=== PATIENT | female | born 1980 | race Caucasian/White ===

== ENCOUNTER 2021-06-27 13:06 | Observation (INO) | payer BC ==
[~2021-06-27] VITALS: Ht 152.4 cm; Wt 45.5 kg
[2021-06-27] MEDS ORDERED: CIPR500S PO (13:32)
[2021-06-27] MEDS ORDERED: ZOFR4TAB16 PO (13:32)
[2021-06-27] MEDS ORDERED: ACET-683 PO (13:34)
[2021-06-27] MEDS ORDERED: IBUP-1114 PO (13:34)
[2021-06-27 14:20] LABS: GLUCOSE, URINE (UA) MANUAL NEGATIVE (NEGATIVE); KETONE, URINE MANUAL NEGATIVE (NEGATIVE)
[2021-06-27 14:21] LABS: BILIRUBIN, URINE MANUAL NEGATIVE (NEGATIVE); UROBILINOGEN, URINE MANUAL NORMAL (NORMAL)
[2021-06-27 14:29] LABS: RBC, URINE TNTC /hpf (0-3); SQUAMOUS EPITHELIAL CELL URINE SMALL AMOUNT /hpf (SMALL AMT)
[2021-06-27 14:30] LABS: BACTERIA, URINE SMALL AMOUNT; HYALINE CAST, URINE NONE SEEN /lpf (0-1); MUCUS, URINE SMALL AMOUNT (NEGATIVE)
[2021-06-27 15:25] LABS: BASO # 0.1 10^3/uL (0.0-0.2); BASO % 0.9 % (0.0-1.0); EOS # 0.7 10^3/uL (0.0-0.5); EOS % 6.4 % (0.0-3.0); HEMATOCRIT 37.3 % (36.0-47.0); HEMOGLOBIN 12.2 g/dl (12.0-15.5); LYMPH % 17.2 % (24.0-44.0); MEAN CORPUSCULAR HGB CONC 32.7 g/dl (32.0-36.5); MEAN CORPUSCULAR VOLUME 97.9 fl (80.0-96.0); MONO # 0.6 10^3/uL (0.0-0.8); MONO % 4.8 % (2.0-8.0); NEUTROPHILS # 8.1 10^3/uL (1.5-8.5); NEUTROPHILS % 70.4 % (36.0-66.0); PLATELET COUNT, AUTOMATED 360 10^3/uL (150-450); RED BLOOD COUNT 3.81 10^6/uL (4.00-5.40); WHITE BLOOD COUNT 11.5 10^3/uL (4.0-10.0)
[2021-06-27 15:49] LABS: ALBUMIN 3.8 GM/DL (3.2-5.2); BILIRUBIN,DIRECT 0.1 MG/DL (0.0-0.2); BILIRUBIN,TOTAL 0.5 MG/DL (0.2-1.0); TOTAL PROTEIN 7.4 GM/DL (6.4-8.2)
[2021-06-27] MEDS ORDERED: MORPHINE 4 MG/ML 1ML VIAL/SYRINGE (J2270) IV ONE (16:35)
[2021-06-27] MEDS ORDERED: NS 1,000 ML IV ONE (16:35)
[2021-06-27] MEDS ORDERED: ONDANSETRON 4MG/2ML VIAL IV ONE (16:35)
--- NOTE | 2021-06-27 17:52 | REP ---
INDICATION: right flank pain/hematuria COMPARISON: None TECHNIQUE: Real time zamudio scale ultrasound examination using curved array transducer. FINDINGS: Right kidney measures 10.5 x 5.3 x 3.3 cm with mild hydronephrosis/proximal hydroureter. No nephrolithiasis, cystic or mass lesion identified. Left kidney measures 10.4 x 4.1 x 3.8 cm and includes 1.5 cm upper pole cyst. No hydronephrosis, nephrolithiasis, or mass lesion identified. Bladder is grossly unremarkable. IMPRESSION: Mild right hydronephrosis/proximal hydroureter. Incidental simple left renal cyst. <Electronically signed by Earnest Baker > 06/27/21 [id number]
[2021-06-27] MEDS ORDERED: PERCOCET 5MG/325MG TAB PO PRN (18:55)
[2021-06-27] MEDS ORDERED: ACETAMINOPHEN TAB 650MG DOSE (2X325MG) PO PRN (18:55)
[2021-06-27] MEDS ORDERED: ONDANSETRON 4MG/2ML VIAL IV PRN (18:55)
[2021-06-27] MEDS ORDERED: CIPR500T39 PO (18:59)
[2021-06-27] MEDS ORDERED: HOME MED LIST COMPLETE! XX SCH (19:00)
[2021-06-27] MEDS ORDERED: THERTAB52 PO (19:00)
[2021-06-27 20:01] LABS: RSV AMPLIFICATION NEGATIVE (NEGATIVE)
--- NOTE | 2021-06-27 20:09 | HPEPDOC ---
General Date of Admission 06/27/21 Date of Service: Jun 27, 2021 Chief Complaint The patient is a 40-year-old female admitted with a reason for visit of Blood In Urine. Source: Patient History of Present Illness Dolores Garrison is a 40 yo F with significant medical history of total hysterectomy. Pt presents with R flank pain and passing bloody clots in urine. Pt reports her symptoms began last Tuesday and [facility] and they treated her for UTI with Macrobid and she was off work for 1 day. Patient reports at work Tuesday she started developing blood clots in her urine and the work [employer] told her to go home and to the ER. Patient reports that she went to the hospital ER in [place] and had a CT scan completed. The CT showed hydronephrosis-no stone and she was placed on macrobid and went to urology clinic for follow-up on Tuesday. Patient had antibiotics changed to Cipro and the plan was for cystoscopy on Tuesday. Unfortunately, the provider had an emergency on Tuesday and the cystoscopy was changed to be planned on Tuesday. The patient was told if her symptoms worsened however to present to the ED. As the patient reported her pain was unable to be controlled at home with the medication she was given and she "losing a lot of blood" she came today. Patient endorses associated symptoms of right flank sharp pain 9 out of 10 with difficulty laying down. Also associated nausea, lightheadedness and chills. Renal US completed and showed similarly, no stone, but + mild R hydronephrosis. Urology was contact by ED and Dr. Singh recommended observation, hydration and abx and pt would be seen in AM. 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 She also endorses recent increased stress - she is a mother of 5 children and is going through divorce. Home Medications Scheduled Ciprofloxacin HCl (Ciprofloxacin HCl) 500 Mg Tablet, 500 MG PO ONCE, (Reported) Multivitamin,Therapeutic (Thera-Tabs) 1 Each Tablet, 1 TAB PO DAILY, (Reported) Scheduled PRN Acetaminophen (Acetaminophen) 500 Mg Tablet, 1,000 MG PO Q6H PRN for PAIN , (Reported) Ibuprofen (Ibuprofen) 400 Mg Tablet, 400 MG PO Q6HP PRN for PAIN, (Reported) Allergies Coded Allergies: Sulfa (Sulfonamide Antibiotics) (Verified Allergy, Mild, vomitting/rash, 06/27/21) metronidazole (Verified Allergy, Mild, vomitting/rash, 06/27/21) Past Medical History Medical History Some day smoker Surgical History Total hysterectomy due to multiple cysts greater than 3 years ago. Family History Significant Family History: Cancer, Renal disease Son/ from leukodystrophy, daughterborn with extra kidney, motherrequired kidney transplant Social History * Smoker: current smoker, cigarettes (Current some day smoker, 1-2) Recent Travel/Sick Contacts: Denies: Recent travel, Recent sick contacts Psychosocial History: No pertinent psych hx Patient is a single mother of 5, going through divorce. A-FIB/CHADSVASC A-FIB History Current/History of A-Fib/PAF?: No Current PO Anticoag Therapy: No Review of Systems Constitutional: Reports: Chills; Denies: Fever, Night Sweats Eyes: Denies: Pain, Vision change ENT: Denies: Head Aches, Ear Pain, Dysphagia Skin: Denies: Rash, Lesions, Breakdown Pulmonary: Denies: Dyspnea, Cough Cardiovascular: Reports: Lt Headedness; Denies: Chest Pain, Palpitations, Orthopnea, Paroxysmal Noc. Dyspnea Gastrointestinal: Reports: Nausea; Denies: Vomiting, Abdominal Pain, Diarrhea Genitourinary: Reports: Hematuria, Other Symptoms (flank pain R); Denies: Dysuria, Frequency, Incontinence, Retention Hematologic: Denies: Bruising, Bleeding Excessively Musculoskeletal: Denies: Neck Pain, Back Pain, Joint Pain, Muscle Pain, Spasms Neurological: Denies: Weakness, Numbness, Change in speech, Confusion Psych: Reports: Mood Normal; Denies: Depression, Memory Issues Physical Examination General Exam: Positive: Alert, No Acute Distress Eye Exam: Positive: PERRLA, Conjunctiva & lids normal, EOMI; Negative: Sclera icteric ENT Exam: Positive: Atraumatic, Mucous membr. moist/pink, Pharynx Normal Neck Exam: Positive: Supple; Negative: JVD, thyromegaly Chest Exam: Positive: Clear to auscultation, Normal air movement Heart Exam: Positive: Rate Normal, Regular Rhythm, Normal S1, Normal S2; Negative: Murmurs, Rubs Telemetry: Positive: No significant arrhythmia Abdomen Exam: Positive: Normal bowel sounds, Soft; Negative: Tenderness, Hepatospenomegaly Extremity Exam: Positive: Normal pulses; Negative: Clubbing, Cyanosis, Edema Skin Exam: Positive: Nl turgor and temperature; Negative: Breakdown, Lesion Neuro Exam: Positive: Normal Gait, Normal Speech, Cranial Nerves 3-12 NL, Reflexes 2+ Psych Exam: Positive: Mental status NL, Mood NL, Oriented x 3 Other physical findings R CVA tenderness Vital Signs Vital Signs Date Time Temp Pulse Resp B/P (MAP) Pulse Ox O2 Delivery O2 Flow Rate FiO2 06/27/21 17:45 60 16 105/55 (72) 100 06/27/21 13:08 98.1 Room Air Laboratory Data Labs 24H Laboratory Tests 2 06/27/21 14:09: Urine Color (EDY) REDH, Urine Appearance (EDY) CLEAR, Urine pH (EDY) 6.0, Urine Specific [place] (EDY) 1.010, Bedside Urine Glucose (UA) NEGATIVE, Bedside Urine Ketones (LAB) NEGATIVE, Bedside Urine Blood POSITIVEH, Bedside Urine Nitrite (LAB) NEGATIVE, Bedside Urine Bilirubin (LAB) NEGATIVE, Bedside Urine Urobilinogen (LAB) NORMAL, Bedside Urine Leukocyte Esterase (L POSITIVEH, Urine Sediment Examination PERFORMED, Urine RBC TNTCH, Urine WBC 3-5H, Urine Squamous Epithelial Cells SMALL AMOUNT, Urine Bacteria SMALL AMOUNTH, Urine Hyaline Casts NONE SEEN, Urine Mucus SMALL AMOUNTH 06/27/21 15:13: Immature Granulocyte % (Auto) 0.3, Neutrophils (%) (Auto) 70.4H, Lymphocytes (%) (Auto) 17.2L, Monocytes (%) (Auto) 4.8, Eosinophils (%) (Auto) 6.4H, Basophils (%) (Auto) 0.9, Neutrophils # (Auto) 8.1, Lymphocytes # (Auto) 2.0, Monocytes # (Auto) 0.6, Eosinophils # (Auto) 0.7H, Basophils # (Auto) 0.1, Nucleated Red Blood Cells % (auto) 0.0, Total Bilirubin 0.5, Direct Bilirubin 0.1, Aspartate Amino Transf (AST/SGOT) 18, Alanine Aminotransferase (ALT/SGPT) 24, Alkaline Phosphatase 72, Total Protein 7.4, Albumin 3.8, Albumin/Globulin Ratio 1.1L, Lipase 138 06/27/21 15:21: POC Glucose (Misc Panel) 89, POC Sodium (Misc Panel) 143, POC Potassium (Misc Panel) 4.1, POC Chloride (Misc Panel) 102, POC Total CO2 (Misc Panel) 28.0H, POC Blood Urea Nitrogen (Misc Panel 5L, POC Ionized Calcium (Misc Panel) 5.0, POC Creatinine (Misc Panel) 0.6, POC Hematocrit (Misc Panel) 36.0L CBC/BMP Laboratory Tests 06/27/21 15:13 Microbiology Microbiology 06/27/21 Urine Culture, Received Pending Assessment/Plan 1. R Hydronephrosis with hematuria 2/2 presumed Pyelonephritis: Pt with reported clots. OMAR without Nephrolithiasis. Anticipate UA sterile given recent OP antibiotics. -Monitor pt, Hydration -UOP, Is and Os -Empiric coverage -Monitor for signs symptoms worsening infection -Symptom management/supportive care: Antiemetics, Percocet/morphine with parameters -Monitor for blood loss, hemoglobin robust at 12.2. Patient reports that she is agreeable to blood transfusion if needed -A.m. lab -N.p.o. after midnight in anticipation of procedure -Urology consult in a.m., appreciate recommendations 2. Tobacco use: Encourage cessation, patient declined nicotine patch DVT: SCDs CODE Status: Full Code Dispo: Home pend urology recommendations Plan / VTE VTE Prophylaxis Ordered?: Yes MARIANNA HUDDLESTON NP Jun 27, 2021 19:27
[2021-06-27] MEDS: cefTRIAXone SOD 1 GM in D5W MINI-BAG PLUS 50 ML IV SCH (20:35)
[2021-06-27] MEDS: NS 1,000 ML IV SCH (20:35)
[2021-06-27 21:33] VITALS: BP 107/64
[2021-06-28] VITALS (9 sets, daily range): BP systolic 88–104; BP diastolic 48–60
[2021-06-28] MEDS: MORPHINE 2 MG/ML 1ML VIAL (J2270) IV PRN ×2 (01:30→06:05)
[2021-06-28] MEDS: NS 1,000 ML IV SCH ×3 (06:04→21:07)
[2021-06-28 07:59] LABS: BASO # 0.1 10^3/uL (0.0-0.2); BASO % 1.1 % (0.0-1.0); EOS # 0.7 10^3/uL (0.0-0.5); EOS % 10.8 % (0.0-3.0); HEMATOCRIT 33.8 % (36.0-47.0); HEMOGLOBIN 11.1 g/dl (12.0-15.5); LYMPH # 2.3 10^3/uL (1.5-5.0); LYMPH % 36.2 % (24.0-44.0); MEAN CORPUSCULAR HEMOGLOBIN 32.3 pg (27.0-33.0); MEAN CORPUSCULAR HGB CONC 32.8 g/dl (32.0-36.5); MEAN CORPUSCULAR VOLUME 98.3 fl (80.0-96.0); MONO # 0.4 10^3/uL (0.0-0.8); NEUTROPHILS # 2.8 10^3/uL (1.5-8.5); NEUTROPHILS % 44.6 % (36.0-66.0); PLATELET COUNT, AUTOMATED 278 10^3/uL (150-450); RED BLOOD COUNT 3.44 10^6/uL (4.00-5.40); WHITE BLOOD COUNT 6.3 10^3/uL (4.0-10.0)
[2021-06-28 08:27] LABS: ALBUMIN 2.9 GM/DL (3.2-5.2); ALT/SGPT 19 U/L (12-78); BILIRUBIN,TOTAL 0.7 MG/DL (0.2-1.0); BLOOD UREA NITROGEN 6 MG/DL (7-18); CALCIUM LEVEL 8.5 MG/DL (8.5-10.1); CARBON DIOXIDE LEVEL 29 MEQ/L (21-32); CHLORIDE LEVEL 111 MEQ/L (98-107); CREATININE FOR GFR 0.48 MG/DL (0.55-1.30); GLOMERULAR FILTRATION RATE > 60.0 (>58); GLUCOSE, FASTING 77 MG/DL (70-100); POTASSIUM SERUM 4.6 MEQ/L (3.5-5.1); SODIUM LEVEL 143 MEQ/L (136-145); TOTAL PROTEIN 6.2 GM/DL (6.4-8.2)
[2021-06-28] MEDS ORDERED: propofoL 200 MG/20 ML VIAL As Ordered ONE ×2 (09:15→10:58)
[2021-06-28] MEDS ORDERED: ONDANSETRON 4MG/2ML VIAL As Ordered ONE (09:15)
[2021-06-28] MEDS ORDERED: dexameTHASONE 4 MG/ML 1ML VIAL (J1100 PER 1MG) As Ordered ONE (09:15)
[2021-06-28] MEDS ORDERED: LIDOCAINE 2% 100MG/5ML SDV (FOR ANES.) As Ordered ONE (09:15)
[2021-06-28] MEDS ORDERED: fentaNYL 100 MCG/2 ML INJECTION (J3010) As Ordered ONE (09:16)
[2021-06-28] MEDS ORDERED: MIDAZOLAM INJ 2MG/2ML VIAL (J2250 PER 1MG) As Ordered ONE (09:16)
[2021-06-28] MEDS ORDERED: CONRAY-60 60% 50ML VIAL (Q9961) As Ordered ONE (10:02)
[2021-06-28] MEDS ORDERED: ACETAMINOPHEN 1000MG 100ML IV BTL (OFIRMEV) (J0131 PER 10MG) As Ordered ONE (10:44)
[2021-06-28] MEDS ORDERED: fentaNYL 100 MCG/2 ML INJECTION (J3010) IV PRN (11:30)
[2021-06-28] MEDS ORDERED: LR 1,000 ML IV SCH (11:30)
[2021-06-28] MEDS ORDERED: oxyCODONE 5MG TAB PO PRN (11:30)
[2021-06-28] MEDS ORDERED: ONDANSETRON 4MG/2ML VIAL IV PRN (11:30)
[2021-06-28] MEDS ORDERED: NS 1,000 ML IV ONE ×2 (12:45→19:35)
--- NOTE | 2021-06-28 13:57 | RO ---
OPERATIVE NOTE DATE OF OPERATION: 06/28/2021 PREOPERATIVE DIAGNOSES: 1. Right hydronephrosis. 2. Hematuria. POSTOPERATIVE DIAGNOSES: 1. Right hydronephrosis. 2. Hematuria. 3. Right UPJ obstruction. PROCEDURE: 1. Cystoscopy. 2. Right retrograde pyelogram. 3. Right ureteroscopy. 4. Placement of right ureteral stent. SURGEON: Eulogio Singh M.D. FLAVORINGS COMPOUNDER: ANESTHESIA: MAC anesthesia with IV sedation. ESTIMATED BLOOD LOSS: Minimal. INDICATION: Miss Dolores Garrison is a 40-year-old woman who recently had approximately 1-2 weeks of right flank pain with recent onset of gross hematuria. She has had two CT scans which reveal right hydronephrosis without stones or mass. She continues with right flank pain and evidence of urinary tract infection. She now presents for a potential diagnosis of this prognosis. PROCEDURE IN DETAIL: The patient was brought into the operating room, placed in supine position. After administration of general anesthesia, she was placed in dorsal lithotomy position and prepped and draped in the usual sterile fashion. Cystourethroscopy was performed using a 21-American cystoscope. The anterior and posterior urethra were noted to be normal. The bladder was entered without difficulty. Upon entrance into the bladder, there was mild erythema noted throughout the mucosa but no obvious gross lesion was appreciated. There was no evidence of cystitis cystica or acute cystitis. The ureteral orifices were in their normal anatomical position and produced a large exert efflux. Using a 5 American open-ended catheter, a right retrograde pyelogram was performed. This revealed a normal middle and distal ureter. There was what appeared to be the ureteropelvic junction on the right side but significant narrowing of the proximal ureter and ballooning of the renal pelvis. The renal calices, however, appeared dilated but preserved. There were no obvious filling defects or stones seen. Under fluoroscopic guidance, a wire was placed across the right distal ureter and up into the right renal pelvis. Placement into the renal pelvis was initially difficult given the helical nature of the proximal ureter. A ureteral access sheath was placed and flexible ureteroscopy was performed. All of the visualized ureter was noted to be normal. There were no skin lesions, masses, tumors or calculi seen. There was significant narrowing in the region of the ureteropelvic requiring the scope to be placed over the wire. There was no evidence of mass or other irregularity in this area. Upon entrance into the renal pelvis, there were some floaties noted but again no obvious infection or lesions. The wire was left in situ and the flexible ureteroscope and ureteral access sheath were removed. A 6 American double pigtail stent was then placed such that one coil was in the renal pelvis and the subsequent coil was in the bladder. The string was allowed to exit the urethral meatus. The bladder was then drained in its entirety, and the cystoscope and the sheath were removed. The patient was returned to supine position and anesthesia was reversed. She was transferred to her bed and taken to the postanesthesia care unit in good condition. Of note, the needle and instrument count were correct at the conclusion of the case.
[2021-06-28] MEDS ORDERED: HYDR-4966 PO (15:07)
[2021-06-28] MEDS ORDERED: CEFD300CAP PO (15:07)
[2021-06-28] MEDS ORDERED: PYRI1TAB5 PO (15:07)
--- NOTE | 2021-06-28 15:27 | DS.PDOC ---
Discharge Summary General Date of Admission Jun 27, 2021 at 18:54 Date of Discharge 06/29/2021 - Discharge held until subsequent day to provide IV fluid hydration / resolution of lactic acidosis Discharge Summary PROCEDURES PERFORMED DURING STAY: Cystoscopy with R ureteral stent placement with Dr. Singh on 06/28 ADMITTING DIAGNOSES / DISCHARGE DIAGNOSES: R sided hydronephrosis Possibly complicated UTI in the setting of hydronephrosis Hypotension; patient reports this is her baseline; remains asymptomatic s/p Lactic acidosis s/p Leukocytosis Normocytic anemia Nicotine use DVT prophylaxis COMPLICATIONS/CHIEF COMPLAINT: R sided flank pain HISTORY OF PRESENT ILLNESS / HOSPITAL COURSE: Patient is a 40-year-old female with no significant past medical history who presented to the hospital with complaints of worsening right-sided flank pain. Patient reported a one-week ago on 06/19, she was experiencing symptoms of a UTI and was prescribed Macrobid. Patient reported that on 06/22 she began to experience blood clots and went to the ER at [place] for further evaluation. While in the emergency room there. Patient had a CT scan that showed hydronephrosis without stone and patient was placed on Macrobid instructions to follow-up with the urology clinic on Tuesday. Patient had her antibiotics changed to ciprofloxacin and was scheduled for a cystoscopy on Tuesday (06/26), o wever, because of an emergency her cystoscopy was rescheduled for Saturday 06/30. Patient's pain persisted and she subsequently presented to the ER for further evaluation. She has been admitted to the hospitalist service for further evaluation and treatment, and urology was called on consultation. In the emergency room, patient had an ultrasound of her kidney that revealed right-sided hydronephrosis and hydroureter. Patient was subsequently taken for cystoscopy with R ureteral stent placement with Dr. Singh on 06/28. Patient was continued with IV fluid hydration. She was given [place], Pyridium, cefdinir on discharge and instructions to follow-up with urology within the next 7 days. DISCHARGE MEDICATIONS: Please see below. ALLERGIES: Please see below. PHYSICAL EXAMINATION ON DISCHARGE: Vitals (See below) General: Lying in bed, appears comfortable, AAOx3 HEENT: NC, AT CVS: +S1S2 Lungs: Fair air entry b/l, no wheezing / rales / rhonchi Abdomen: Soft, ND, NT, mild R sided CVA tenderness - patient reports marked improvement Extremities: - Edema LABORATORY DATA: Please see below. IMAGING: Renal US 06/27: Mild right hydronephrosis/proximal hydroureter. Incidental simple left renal cyst. ACTIVITY: [As tolerated]. DISCHARGE PLAN: Follow-up with primary care provider, and urology within the next 7 days Remain compliant with treatment plan and medications Return to the ER if you experience any problems DISPOSITION: Home DISCHARGE CONDITION: [Stable]. TIME SPENT ON DISCHARGE: 35 minutes. Vital Signs/I&Os Vital Signs Date Time Temp Pulse Resp B/P (MAP) Pulse Ox O2 Delivery O2 Flow Rate FiO2 06/28/21 15:00 98.6 80 16 92/50 (64) 98 Room Air I&O- Last 24 Hours up to 6 AM 06/28/21 05:59 Intake Total 1150 ml Balance 1150 ml Laboratory Data Labs 24H Laboratory Tests 2 06/27/21 15:21: POC Glucose (Misc Panel) 89, POC Sodium (Misc Panel) 143, POC Potassium (Misc Panel) 4.1, POC Chloride (Misc Panel) 102, POC Total CO2 (Misc Panel) 28.0H, POC Blood Urea Nitrogen (Misc Panel 5L, POC Ionized Calcium (Misc Panel) 5.0, POC Creatinine (Misc Panel) 0.6, POC Hematocrit (Misc Panel) 36.0L 06/27/21 19:08: Coronavirus (COVID-19)(PCR) NEGATIVE, Influenza Type A (RT-PCR) NEGATIVE, Influenza Type B (RT-PCR) NEGATIVE, Respiratory Syncytial Virus (PCR) NEGATIVE 06/28/21 07:37: Lactic Acid Level 0.9 06/28/21 07:38: Immature Granulocyte % (Auto) 0.3, Neutrophils (%) (Auto) 44.6, Lymphocytes (%) (Auto) 36.2, Monocytes (%) (Auto) 7.0, Eosinophils (%) (Auto) 10.8H, Basophils (%) (Auto) 1.1H, Neutrophils # (Auto) 2.8, Lymphocytes # (Auto) 2.3, Monocytes # (Auto) 0.4, Eosinophils # (Auto) 0.7H, Basophils # (Auto) 0.1, Nucleated Red Blood Cells % (auto) 0.0, Anion Gap 3L, Glomerular Filtration Rate > 60.0, Calcium Level 8.5, Total Bilirubin 0.7, Aspartate Amino Transf (AST/SGOT) 28, Alanine Aminotransferase (ALT/SGPT) 19, Alkaline Phosphatase 61, Total Protein 6.2L, Albumin 2.9#L, Albumin/Globulin Ratio 0.9L, Procalcitonin <0.05 06/28/21 13:29: Lactic Acid Level 2.5*H CBC/BMP Laboratory Tests 06/28/21 07:38 Microbiology Microbiology 06/27/21 Urine Culture - Final, Complete Discharge Medications Scheduled Cefdinir (Cefdinir) 300 Mg Capsule, 1 CAP PO BID Multivitamin,Therapeutic (Thera-Tabs) 1 Each Tablet, 1 TAB PO DAILY, (Reported) Phenazopyridine HCl (Pyridium) 200 Mg Tablet, 200 MG PO TID for urinary discomfort Scheduled PRN Acetaminophen (Acetaminophen) 500 Mg Tablet, 1,000 MG PO Q6H PRN for PAIN , (Reported) Hydrocodone/Acetaminophen (Hydrocodone-Acetamin 2.5-325) 1 Each Tablet, 1 EACH PO TIDP PRN for moderate / severe pain Ibuprofen (Ibuprofen) 400 Mg Tablet, 400 MG PO Q6HP PRN for PAIN, (Reported) Allergies Coded Allergies: Sulfa (Sulfonamide Antibiotics) (Verified Allergy, Mild, vomitting/rash, 06/27/21) metronidazole (Verified Allergy, Mild, vomitting/rash, 06/27/21) CARLOS PERLA MD Jun 28, 2021 15:27
--- NOTE | 2021-06-28 19:54 | IPNPDOC ---
Text Note Date of Service Significant Event NOTE Unfortunately, patient with increased lactic despite hydration. Vital signs stable at 100/60 manual, heart rate 73, temperature 98.5 F, O2 99% room air. Patient denies complaints; exact etiology of lactic acidosis uncertain. Lactic 0.9 to2.5 to 3. Plan to hold patient for observation and ensure no complications. Will give additional bolus with her current hydration and recheck lactic. A.m. labs. Patient aware of findings and is agreeable to plan. Monitor and consider differentials VS,Fishbone, I+O VS, Fishbone, I+O Laboratory Tests 06/28/21 07:38 Vital Signs Date Time Temp Pulse Resp B/P (MAP) Pulse Ox O2 Delivery O2 Flow Rate FiO2 06/28/21 19:26 98.5 71 16 100/60 (73) 99 Room Air I&O- Last 24 Hours up to 6 AM 06/28/21 06:00 Intake Total 1150 ml Balance 1150 ml MARIANNA HUDDLESTON NP Jun 28, 2021 19:54
[2021-06-28] MEDS: cefTRIAXone SOD 1 GM in D5W MINI-BAG PLUS 50 ML IV SCH (21:06)
[2021-06-28] MEDS ORDERED: NS 500 ML IV ONE (23:25)
[2021-06-29 02:00] VITALS: BP 95/55
[2021-06-29 02:59] LABS: BASO % 0.2 % (0.0-1.0); HEMATOCRIT 30.7 % (36.0-47.0); HEMOGLOBIN 10.3 g/dl (12.0-15.5); LYMPH % 6.4 % (24.0-44.0); MEAN CORPUSCULAR HEMOGLOBIN 32.3 pg (27.0-33.0); MEAN CORPUSCULAR HGB CONC 33.6 g/dl (32.0-36.5); MEAN CORPUSCULAR VOLUME 96.2 fl (80.0-96.0); MONO % 4.5 % (2.0-8.0); NEUTROPHILS # 11.2 10^3/uL (1.5-8.5); NEUTROPHILS % 88.3 % (36.0-66.0); PLATELET COUNT, AUTOMATED 278 10^3/uL (150-450); RED BLOOD COUNT 3.19 10^6/uL (4.00-5.40); WHITE BLOOD COUNT 12.6 10^3/uL (4.0-10.0)
[2021-06-29 03:00] LABS: LYMPH # 0.8 10^3/uL (1.5-5.0); MONO # 0.6 10^3/uL (0.0-0.8)
[2021-06-29 03:20] LABS: BLOOD UREA NITROGEN 4 MG/DL (7-18); CALCIUM LEVEL 8.2 MG/DL (8.5-10.1); CARBON DIOXIDE LEVEL 26 MEQ/L (21-32); CHLORIDE LEVEL 113 MEQ/L (98-107); CREATININE FOR GFR 0.52 MG/DL (0.55-1.30); GLOMERULAR FILTRATION RATE > 60.0 (>58); GLUCOSE, FASTING 136 MG/DL (70-100); POTASSIUM SERUM 4.1 MEQ/L (3.5-5.1); SODIUM LEVEL 143 MEQ/L (136-145)
[2021-06-29 06:00] VITALS: BP 109/65
--- NOTE | 2021-06-29 08:25 | IPNPDOC ---
Text Note Date of Service The patient was seen on 06/29/21. NOTE Subjective: Patient is a 40-year-old female with no significant past medical history who presented to the hospital with complaints of worsening right-sided flank pain. Patient had received cystoscopy and right-sided ureteral stenting on 06/28. Patient was seen and examined at the bedside. Patient denies any chest pain, short of breath, palpitations, nausea, vomiting, abdominal pain, diarrhea, or urinary discomfort. Objective: Vitals (See below) General: Lying in bed, appears comfortable without any acute distress, is awake and alert, oriented 3 HEENT: Normocephalic and atraumatic CVS: +S1S2 Lungs: Auscultation is free of any rhonchi, crackles or wheezing Abdomen: Soft, nondistended, nontender, very minimal residual right-sided CVA tenderness Extremities: No evidence of edema Imaging: Renal US 06/27: Mild right hydronephrosis/proximal hydroureter. Incidental simple left renal cyst. Assessment: R sided hydronephrosis Possibly complicated UTI in the setting of hydronephrosis Hypotension; patient reports this is her baseline; remains asymptomatic s/p Lactic acidosis s/p Leukocytosis Normocytic anemia Nicotine use DVT prophylaxis Plan: - Patient remained in the hospital for an additional day to continue with IV fluid hydration - This morning her lactic acid has normalized - Please see attached discharge summary for hospital course VS,Fishbone, I+O VS, Fishbone, I+O Laboratory Tests 06/29/21 02:50 Vital Signs Date Time Temp Pulse Resp B/P (MAP) Pulse Ox O2 Delivery O2 Flow Rate FiO2 06/29/21 06:00 98.3 65 20 109/65 (80) 96 06/28/21 19:26 Room Air I&O- Last 24 Hours up to 6 AM 06/29/21 06:00 Intake Total 1905 ml Output Total 2150 ml Balance -245 ml CARLOS PERLA MD Jun 29, 2021 08:25
--- NOTE | 2021-06-29 09:02 | REP ---
INDICATION: CYSTOSCOPY WITH RIGHT URETEROSCOPY,STENT PLACEMENT. COMPARISON: None. TECHNIQUE: Three views. 1 minute 25 seconds of fluoroscopy time is reported. FINDINGS: A sequence of 3 last image hold fluoroscopically obtained spot radiographs of the abdomen document right ureteral cannulation, contrast injection, and stent placement. IMPRESSION: Procedural imaging. <Electronically signed by Min Stahl > 06/29/21 0825
== END 2021-06-29 08:30 | disposition home or self-care (01) ==
LOC: M ED 13:06 → M ED INP 13:07 → UNDOADMOB 18:54 → INTOOBSV 18:54 → ENRESERVTM 20:13 → ENRESERVDT 20:13 → M ED INP 21:28 → M MS5PR 21:28 → UNDODISOB 06-29 08:30
PROVIDERS: ADMIT Family Medicine; ATTEND Family Medicine
DX: N13.2 Hydronephrosis with renal and ureteral calculous obstruction (principal); R31.9 Hematuria, unspecified; I95.1 Orthostatic hypotension; E87.2 Acidosis; D64.9 Anemia, unspecified; D72.829 Elevated white blood cell count, unspecified; F17.218 Nicotine dependence, cigarettes, with other nicotine-induced disorders; Z79.899 Other long term (current) drug therapy; Z88.2 Allergy status to sulfonamides; Z88.1 Allergy status to other antibiotic agents
CPT/HCPCS: 36415; 52332; 74420; 76775; 80047; 80048; 80053; 80076; 81000; 83605; 83690; 84145; 85025; 86140; 87086; 87631; 96361; 96365; 96366; 96375; 96376; 99284; C1769; C1894; C2617; J0131; J0696; J1100; J2250; J2270; J2405; J3010; Q9961